=== PATIENT | male | born 1955 | race Asian ===

== ENCOUNTER 2022-08-17 22:39 | Inpatient (IN) | payer OTHER ==
[~2022-08-17] VITALS: Ht 175.3 cm; Wt 89.8 kg
[2022-08-17 23:43] LABS: HEMATOCRIT 40.1 % (36.7-47.1); MEAN CORPUSCULAR HEMOGLOBIN 33.5 uug (23.8-33.4); MEAN CORPUSCULAR VOLUME 97.2 fL (73.0-96.2); PLATELET COUNT (AUTO) 154 K/uL (152-348)
[2022-08-18 00:11] LABS: ALANINE AMINOTRANSFERASE 91 U/L (16-63); ALKALINE PHOSPHATASE 74 U/L (50-136); ASPARTATE AMINOTRANSFERASE 145 U/L (15-37); BILIRUBIN,DIRECT 0.3 mg/dL (0.0-0.2); BILIRUBIN,TOTAL 0.6 mg/dL (0.2-1.0); CARBON DIOXIDE 28 mmol/L (21-32); CHLORIDE 101 mmol/L (98-107); CREATININE 1.3 mg/dL (0.6-1.3); GLUCOSE 151 mg/dL (74-106); POTASSIUM 3.4 mmol/L (3.5-5.1); TOTAL PROTEIN, SERUM 9.1 g/dL (6.4-8.2); UREA NITROGEN, BLOOD 13 mg/dL (7-18)
[2022-08-18] MEDS ORDERED: NIFE-60 PO (00:31)
[2022-08-18] MEDS ORDERED: LOVA20TA2 PO (00:31)
[2022-08-18] MEDS ORDERED: FOLI1TAB94 PO (00:31)
[2022-08-18] MEDS: ONDANSETRON 4 MG/2 ML VIAL IV ONE ×2 (01:00→01:35)
[2022-08-18] MEDS ORDERED: MORPHINE SULFATE 4 MG/1 ML DISP.SYRIN IV ONE (01:00)
[2022-08-18] MEDS ORDERED: ONDANSETRON 4 MG/2 ML VIAL ONE ×2 (01:05→07:28)
[2022-08-18] MEDS ORDERED: MORPHINE SULFATE 4 MG/1 ML DISP.SYRIN ONE ×2 (01:06→07:28)
[2022-08-18] MEDS ORDERED: IV NORMAL SALINE 250 ML IV ONE (03:57)
[2022-08-18] MEDS ORDERED: IOHEXOL 350 100 ML INFUS..BTL ONE (03:57)
[2022-08-18] MEDS ORDERED: SWABABLE VALVE TRANSFER SET EA MC ONE (03:57)
[2022-08-18] MEDS ORDERED: MAGNESIUM HYDROXIDE 30 ML LIQUID UDC PO PRN (06:00)
[2022-08-18] MEDS ORDERED: ACETAMINOPHEN 325 MG TABLET PO PRN (06:00)
[2022-08-18] MEDS ORDERED: HYDROCODONE/APAP 5-325MG TABLET PO PRN (06:00)
[2022-08-18] MEDS ORDERED: TEMAZEPAM 15 MG CAPSULE PO PRN (06:00)
[2022-08-18] MEDS ORDERED: ONDANSETRON 4 MG/2 ML VIAL IV PRN (06:00)
[2022-08-18] MEDS ORDERED: ENOXAPARIN SODIUM 40 MG/0.4 ML DISP.SYRIN SQ SCH (06:00)
[2022-08-18] MEDS ORDERED: REMEDY ESSENTIAL ZINC PASTE 113 GM TP PRN (06:00)
[2022-08-18] MEDS ORDERED: NITROGLYCERIN 0.4 MG/TAB BOTTLE SL PRN (06:00)
[2022-08-18] MEDS ORDERED: MORPHINE SULFATE 2 MG/1 ML DISP.SYRIN IV PRN (06:00)
[2022-08-18] MEDS ORDERED: PANTOPRAZOLE SODIUM 40 MG TABLET.DR PO ONE (07:28)
[2022-08-18] MEDS: PANTOPRAZOLE SODIUM 40 MG TABLET.DR PO SCH (07:33)
[2022-08-18] MEDS ORDERED: ASPIRIN 81 MG TAB.CHEW ONE (09:08)
[2022-08-18] MEDS: ASPIRIN 81 MG TAB.CHEW PO SCH (09:10)
[2022-08-18 17:21] VITALS: BP 175/103
[2022-08-18] MEDS: MORPHINE SULFATE 4 MG/1 ML DISP.SYRIN IV PRN (17:41)
[2022-08-18] MEDS ORDERED: hydrALAZINE HCL 25 MG TABLET PO PRN (18:15)
[2022-08-18] MEDS ORDERED: ISOS30TA86 PO (18:17)
[2022-08-18] MEDS ORDERED: METO25TA6 PO (18:17)
[2022-08-18] MEDS ORDERED: ERGO500040 PO (18:17)
[2022-08-18] MEDS: METOPROLOL TARTRATE 50 MG TABLET PO SCH ×2 (18:36→20:30)
[2022-08-18 20:00] VITALS: BP 149/95
[2022-08-18] MEDS: ISOSORBIDE MONONITRATE 30 MG TAB.SR.24H PO SCH (20:29)
[2022-08-19] VITALS: BP 142/84
[2022-08-19] MEDS: MORPHINE SULFATE 4 MG/1 ML DISP.SYRIN IV PRN (02:34)
[2022-08-19 04:00] VITALS: BP 135/58
[2022-08-19] MEDS: PANTOPRAZOLE SODIUM 40 MG TABLET.DR PO SCH (06:34)
[2022-08-19 07:13] LABS: MEAN CORPUSCULAR HEMOGLOBIN 33.5 uug (23.8-33.4); MEAN CORPUSCULAR VOLUME 97.7 fL (73.0-96.2); PLATELET COUNT (AUTO) 129 K/uL (152-348)
[2022-08-19 07:32] LABS: CREATININE 1.6 mg/dL (0.6-1.3); MAGNESIUM 2.3 mg/dL (1.8-2.4); PHOSPHOROUS 3.6 mg/dL (2.5-4.9); POTASSIUM 3.7 mmol/L (3.5-5.1); TOTAL PROTEIN, SERUM 7.4 g/dL (6.4-8.2)
[2022-08-19 07:38] LABS: THYROID STIMULATING HORMONE 3.034 mIU/mL (0.358-3.740)
[2022-08-19] MEDS ORDERED: IV NS 1000 ML 1,000 ML IV ONE (09:00)
[2022-08-19] MEDS ORDERED: IV NORMAL SALINE 1000 ML BAG IV ONE (09:00)
[2022-08-19] MEDS ORDERED: ISOSORBIDE MONONITRATE 30 MG TAB.SR.24H PO SCH (09:00)
[2022-08-19] MEDS ORDERED: FOLIC ACID 1 MG TABLET PO SCH (09:00)
[2022-08-19] MEDS ORDERED: IV NS 1000 ML 1,000 ML IV PRN (09:45)
[2022-08-19] MEDS: ASPIRIN 81 MG TAB.CHEW PO SCH (10:38)
[2022-08-19] MEDS: ISOSORBIDE MONONITRATE 30 MG TAB.SR.24H PO SCH (10:44)
[2022-08-19] MEDS: FOLIC ACID 1 MG TABLET PO SCH (10:44)
[2022-08-19] MEDS: METOPROLOL TARTRATE 50 MG TABLET PO SCH ×2 (10:45→21:48)
[2022-08-19] MEDS: NIFEdipine XL 30 MG TABSR PO SCH (10:46)
[2022-08-19] MEDS: ENOXAPARIN SODIUM 40 MG/0.4 ML DISP.SYRIN SQ SCH (10:47)
[2022-08-19 11:35] VITALS: BP 133/77
[2022-08-19 16:24] VITALS: BP 106/66
[2022-08-19] MEDS ORDERED: ATORVASTATIN 40 MG TABLET PO SCH (21:00)
[2022-08-20 00:39] VITALS: BP 122/78
[2022-08-20 04:21] LABS: *BILIRUBIN,URIN NEGATIVE (NEGATIVE); *BLOOD, URINE NEGATIVE (NEGATIVE); *CLARITY,URINE CLEAR (CLEAR); *COLOR,URINE LIGHT YELLOW (YELLOW); *KETONES,URINE NEGATIVE (NEGATIVE); *UROBILINOGEN,URINE 0.2 E.U./dl (NORMAL); LEUKOCYTE ESTERASE ,URINE NEGATIVE (NEGATIVE); NITRITE, URINE NEGATIVE (NEGATIVE); PH,URINE 6.5 (5.0-8.0); UGLUCOSE NEGATIVE (NEGATIVE)
[2022-08-20 04:35] LABS: *CREATININE,URINE 41.8 mg/dL (30-125); *URINE TOTAL PROTEIN RANDOM 8.7 mg/dL (<150/24HR)
[2022-08-20 05:57] VITALS: BP 133/81
[2022-08-20 06:33] LABS: HEMATOCRIT 32.1 % (36.7-47.1); MEAN CORPUSCULAR HEMOGLOBIN 33.5 uug (23.8-33.4); MEAN CORPUSCULAR VOLUME 96.9 fL (73.0-96.2); PLATELET COUNT (AUTO) 114 K/uL (152-348)
[2022-08-20] MEDS: PANTOPRAZOLE SODIUM 40 MG TABLET.DR PO SCH (06:49)
[2022-08-20 07:00] LABS: BILIRUBIN,TOTAL 0.8 mg/dL (0.2-1.0); CREATININE 1.6 mg/dL (0.6-1.3); MAGNESIUM 2.3 mg/dL (1.8-2.4); PHOSPHOROUS 3.4 mg/dL (2.5-4.9); POTASSIUM 3.9 mmol/L (3.5-5.1); TOTAL PROTEIN, SERUM 7.2 g/dL (6.4-8.2)
[2022-08-20 08:00] VITALS: BP 147/68
[2022-08-20] MEDS: NIFEdipine XL 30 MG TABSR PO SCH (09:32)
[2022-08-20] MEDS: ISOSORBIDE MONONITRATE 30 MG TAB.SR.24H PO SCH (09:32)
[2022-08-20] MEDS: ASPIRIN 81 MG TAB.CHEW PO SCH (09:32)
[2022-08-20] MEDS: FOLIC ACID 1 MG TABLET PO SCH (09:32)
[2022-08-20] MEDS: ENOXAPARIN SODIUM 40 MG/0.4 ML DISP.SYRIN SQ SCH (09:34)
[2022-08-20 09:35] VITALS: BP 147/68
[2022-08-20] MEDS: METOPROLOL TARTRATE 50 MG TABLET PO SCH (09:35)
[2022-08-20] MEDS ORDERED: METO50TA16 PO (11:20)
[2022-08-20] MEDS ORDERED: ASPI81TA31 PO (11:20)
[2022-08-20] MEDS ORDERED: LOVA20TA2 PO (11:20)
[2022-08-24 12:07] LABS: A/G RATIO 0.9 (0.7-1.7); ALBUMIN 3.1 g/dL (2.9-4.4); ALPHA-1-GLOBULIN 0.3 g/dL (0.0-0.4); ALPHA-2-GLOBULIN 0.7 g/dL (0.4-1.0); GAMMA GLOBULIN 1.7 g/dL (0.4-1.8); GLOBULIN, TOTAL 3.6 g/dL (2.2-3.9); M-SPIKE Not Observed g/dL (Not Observed)
== END 2022-08-20 12:30 | disposition home or self-care (01) | DRG 304 ==
LOC: ER 22:43 → TRANSITION 08-18 01:00 → TELE3 08-18 15:45
PROVIDERS: ADMIT Internal Medicine; ATTEND Internal Medicine
DX: I16.0 Hypertensive urgency (principal); N17.0 Acute kidney failure with tubular necrosis; E87.6 Hypokalemia; E78.5 Hyperlipidemia, unspecified; E66.9 Obesity, unspecified; I25.10 Atherosclerotic heart disease of native coronary artery without angina pectoris; I12.9 Hypertensive chronic kidney disease with stage 1 through stage 4 chronic kidney disease, or unspecified chronic kidney disease; N18.9 Chronic kidney disease, unspecified; R74.01 Elevation of levels of liver transaminase levels; K80.20 Calculus of gallbladder without cholecystitis without obstruction; D75.89 Other specified diseases of blood and blood-forming organs; R73.9 Hyperglycemia, unspecified; Z68.29 Body mass index [BMI] 29.0-29.9, adult; T50.8X5A Adverse effect of diagnostic agents, initial encounter; Y92.89 Other specified places as the place of occurrence of the external cause; Z79.82 Long term (current) use of aspirin; Z72.0 Tobacco use; R93.1 Abnormal findings on diagnostic imaging of heart and coronary circulation; Z20.822 Contact with and (suspected) exposure to COVID-19
CPT/HCPCS: 36415; 71045; 71275; 76770; 83690; 83735; 83970; 84100; 84155; 84156; 84165; 84300; 84443; 84484; 85025; 93005; 93307; A4663; G0378; J1650; J2270; J2405; J7040; Q9967